=== PATIENT | male | born 1985 | race Caucasian/White ===

== ENCOUNTER 2020-08-08 01:08 | Emergency (ER) | payer OTHER ==
[~2020-08-08] VITALS: Ht 170.2 cm; Wt 72.7 kg
[~2020-08-08 01:08] MED LIST: LORTAB 5/500 501 TAB PO; NORCO 325 MG-7.1 TAB PO; TYLENOL 325MG325 MG PO; TYLENOL 500MG500 MG PO
[2020-08-08 01:09] VITALS: TEMP 97.7
[2020-08-08] MEDS ORDERED: AMOXICILLIN 8751 TAB PO (02:56)
[2020-08-08 03:30] VITALS: BP 147/95; PULSE 125
== END 2020-08-08 03:30 | disposition home or self-care (01) ==
LOC: COL.ER 01:08 → EDBD 01:10 → COL.ER 01:10
DX: S11.91XA Laceration without foreign body of unspecified part of neck, initial encounter (principal); S01.312A Laceration without foreign body of left ear, initial encounter; T74.21XA Adult sexual abuse, confirmed, initial encounter; F17.200 Nicotine dependence, unspecified, uncomplicated; Y08.89XA Assault by other specified means, initial encounter; Y07.01 Husband, perpetrator of maltreatment and neglect

== ENCOUNTER → 2020-08-13 | Outpatient (CLI) | payer OTHER ==
[~2020-08-13] MED LIST changes: +AMOXICILLIN 8751 TAB PO
[2020-08-13 15:06] VITALS: BP 146/85; PULSE 81; TEMP 98.4
== END ==
LOC: COL.ER 15:02
DX: Z48.00 Encounter for change or removal of nonsurgical wound dressing (principal)